=== PATIENT | female | born 1980 | race Caucasian/White ===

== ENCOUNTER 2019-07-29 15:51 | Outpatient (REF) | payer BC, SELFPAY ==
[2019-07-29 21:14] LABS: HCT 38.3 % (36.0-46.0); HGB 12.3 g/dL (12.0-15.5); Mean Corp. HGB Concentration 32.1 g/dL (32.0-36.0); Mean Corpuscular Hemoglobin 27.7 pg (27.0-33.0); Mean Corpuscular Volume 86.3 fL (80-95); Mean Platelet Volume 9.8 fL (8.0-11.0); Platelet Count 376 x1000/uL (130-400); RBC 4.44 m/cumm (4.00-5.20); RBC Distribution Width 13.4 % (11.7-14.6); White Blood Cell Count 5.38 k/cumm (4.4-10.8)
[2019-07-29 21:39] LABS: Vitamin D 25 Total 33.9 ng/ml (30-100)
[2019-07-29 22:10] LABS: ESR 7 mm/hr (0-20)
[2019-08-02 14:30] LABS: ANA Interpretation Positive (Negative); ANA Titer Pattern 1:80 Speckled
== END 2019-07-29 16:11 ==
LOC: NCHCN 15:51
PROVIDERS: PCP Physician Assistant Medical; Visit Provider Nurse Practitioner Family
DX: Z00.00 Encounter for general adult medical examination without abnormal findings (principal); I73.00 Raynaud's syndrome without gangrene; G43.909 Migraine, unspecified, not intractable, without status migrainosus
CPT/HCPCS: 82306; 85027; 85652; 86038

== ENCOUNTER 2020-08-07 09:52 | Outpatient (REF) | payer BC, SELFPAY ==
--- NOTE | 2020-08-07 08:30 | PAPFT_PTH ---
PATIENT: Bella Murray LOC: [facility]#:[id number] AGE/SX: 39/F ROOM: RE08/07/[address]: Sushma Barrera : 1980 BED: DIS: 08/07/2020 SPEC #: [id number] RECD: 08/07/20 18:40 STATUS: KEAGANBrendon REQ #: [id number] MAGALI: 08/07/20 08:[address]: Sushma Barrera DEPT: [facility] Cytology RECD BY: Yvette Chapa ENTERED: 08/07/20 18:40 SP TYPE: PAPFT OTHR DR: Jorge A Golden Tissues: 1 - CX/ENDOCX FOR PAP SMEARS Procedures: PAP THIN PREP/UVM Screening HPV DNA PROBE Comments: [id number]
== END 2020-08-07 10:12 ==
LOC: NCHCN 09:52
PROVIDERS: PCP Physician Assistant Medical; Visit Provider Nurse Practitioner Family
DX: Z12.4 Encounter for screening for malignant neoplasm of cervix (principal); Z11.51 Encounter for screening for human papillomavirus (HPV); Z01.419 Encounter for gynecological examination (general) (routine) without abnormal findings
CPT/HCPCS: 88142; 87624

== ENCOUNTER 2020-08-07 16:38 | Outpatient (REF) | payer BC, SELFPAY ==
[2020-08-07 20:10] LABS: Calculated LDL 193 mg/dL (<100); Cholesterol 273 mg/dL (<200); Glucose 84 mg/dL (74-106); HDL Cholesterol 72 mg/dL (40-60); Triglyceride 44 mg/dL (<150)
== END 2020-08-07 16:58 ==
LOC: NCHCN 16:38
PROVIDERS: PCP Physician Assistant Medical; Visit Provider Nurse Practitioner Family
DX: Z00.00 Encounter for general adult medical examination without abnormal findings (principal); Z13.220 Encounter for screening for lipoid disorders; Z13.1 Encounter for screening for diabetes mellitus
CPT/HCPCS: 80061; 82947

== ENCOUNTER 2021-02-26 11:30 | Outpatient (REF) | payer BC, SELFPAY ==
[2021-02-26 16:02] LABS: Calculated LDL 208 mg/dL (<100); Cholesterol 293 mg/dL (<200); HDL Cholesterol 78 mg/dL (40-60); Triglyceride 39 mg/dL (<150)
== END 2021-02-26 11:31 | disposition home or self-care (01) ==
LOC: NCHCN 11:30
PROVIDERS: PCP Physician Assistant Medical; Visit Provider Nurse Practitioner Family
DX: E78.5 Hyperlipidemia, unspecified (principal)
CPT/HCPCS: 80061

== ENCOUNTER 2021-05-04 09:24 | Outpatient (REF) | payer BC, SELFPAY ==
[2021-05-04 19:59] LABS: ALT 30 U/L (14-59); AST 15 U/L (15-37); Calculated LDL 109 mg/dL (<100); Cholesterol 187 mg/dL (<200); HDL Cholesterol 68 mg/dL (40-60); Triglyceride 50 mg/dL (<150)
== END 2021-05-04 09:25 | disposition home or self-care (01) ==
LOC: NCHCN 09:24
PROVIDERS: PCP Physician Assistant Medical; Referring Provider Nurse Practitioner Family; Visit Provider Nurse Practitioner Family
DX: E78.5 Hyperlipidemia, unspecified (principal)
CPT/HCPCS: 80061; 84450; 84460

== ENCOUNTER 2022-06-05 02:43 | Outpatient (CLI) | payer BC, SELFPAY ==
[2022-06-05 08:56] LABS: Calculated LDL 79 mg/dL (<100); Cholesterol 169 mg/dL (<200); HDL Cholesterol 84 mg/dL (40-60); Triglyceride 32 mg/dL (<150)
[2022-06-05 08:57] LABS: ALT 23 U/L (14-59); AST 21 U/L (15-37); Creatine Kinase 64 U/L (26-192); Glucose 93 mg/dL (74-106)
== END 2022-06-05 02:44 | disposition home or self-care (01) ==
LOC: LBO 02:43
PROVIDERS: Internal Medicine Cardiovascular Disease; PCP Physician Assistant Medical; Visit Provider Nurse Practitioner Family
DX: E78.00 Pure hypercholesterolemia, unspecified (principal); E78.5 Hyperlipidemia, unspecified; Z00.00 Encounter for general adult medical examination without abnormal findings
CPT/HCPCS: 36415; 80061; 82550; 82947; 84450; 84460

== ENCOUNTER 2023-05-19 18:58 | Outpatient (REF) | payer BC, SELFPAY ==
[2023-05-19 16:56] LABS: ALT 26 U/L (14-59); AST 27 U/L (15-37); Calculated LDL 105 mg/dL (<100); Cholesterol 189 mg/dL (<200); Creatine Kinase 207 U/L (26-192); Glucose 70 mg/dL (74-106); HDL Cholesterol 71 mg/dL (40-60); Triglyceride 66 mg/dL (<150)
== END 2023-05-19 18:59 | disposition home or self-care (01) ==
LOC: NCHCN 18:58
PROVIDERS: PCP Physician Assistant Medical; Visit Provider Nurse Practitioner Family
DX: Z00.00 Encounter for general adult medical examination without abnormal findings (principal); E78.5 Hyperlipidemia, unspecified; R73.09 Other abnormal glucose
CPT/HCPCS: 80061; 82550; 82947; 84450; 84460

== ENCOUNTER 2023-06-04 15:58 | Outpatient (CLI) | payer BC, SELFPAY ==
--- NOTE | 2023-06-04 15:00 | DI.RAD_ITS ---
Exam(s) XR TIB/FIB RT EXAM: XR TIB/FIB RT CLINICAL HISTORY: CALF PAIN. TECHNIQUE: 2D digital imaging was performed. COMPARISON: No exams were available for comparison FINDINGS: Two views No evidence of acute fracture. Bone density normal. No osseous lesions. No obvious degenerative ch anges in the partially visualized knee. IMPRESSION: No significant osseous findings in the tibia and fibula. DATA REPOSITORY: RADIATION DOSE DELIVERED:
== END 2023-06-04 15:59 | disposition home or self-care (01) ==
LOC: DIORS 15:58
PROVIDERS: PCP Physician Assistant Medical; Visit Provider Student in an Organized Health Care Education/Training Program
DX: M79.661 Pain in right lower leg (principal)
CPT/HCPCS: 73590

== ENCOUNTER 2024-11-16 18:54 | Outpatient (REF) | payer OTHER, SELFPAY ==
--- NOTE | 2024-11-16 13:50 | PAPFT_PTH ---
PATIENT: Bella Murray LOC: [facility]#:[id number] AGE/SX: 44/F ROOM: RE11/16/[address]: Katiana Jalloh V : 1980 BED: DIS: 11/16/2024 SPEC #: [id number] RECD: 11/17/24 13:13 STATUS: JALYN RESumi #: [id number] MAGALI: 11/16/24 13:[address]: Katiana Jalloh V DEPT: [facility] Cytology RECD BY: Yvette Chapa ENTERED: 11/17/24 13:14 SP TYPE: PAPFT OT DR: Jorge A Golden Tissues: 1 - CX/ENDOCX FOR PAP SMEARS Procedures: PAP THIN PREP/UVM Screening Comments: [id number]
[2024-11-16 20:21] LABS: Hemoglobin A1C 5.3 % (<5.7)
[2024-11-16 20:24] LABS: ALT 37 U/L (14-59); AST 36 U/L (15-37); Albumin 3.8 g/dL (3.4-5.0); Alkaline Phosphatase 52 U/L (46-116); Anion Gap 7.6 mmol/L (3-11); BUN 14 mg/dL (7-18); Bilirubin, Total 0.3 mg/dL (0.2-1.0); CO2 28.4 mmol/L (21.0-32.0); CREATININE 0.7 mg/dL (0.55-1.02); Calculated LDL 100 mg/dL (<100); Chloride 106 mmol/L (98-107); Cholesterol 188 mg/dL (<200); Estimated GFR 108.62 (mL/min/1.73m2); Glucose 104 mg/dL (74-106); HDL Cholesterol 77 mg/dL (>or=50); Potassium 3.8 mmol/L (3.5-5.1); Sodium 142 mmol/L (136-145); Total Protein 7.4 g/dL (6.4-8.2); Triglyceride 56 mg/dL (<150)
[2024-11-16 21:36] LABS: Creatine Kinase 250 U/L (26-192)
== END 2024-11-16 18:55 | disposition home or self-care (01) ==
LOC: NCHCN 18:54
PROVIDERS: PCP Physician Assistant Medical; Visit Provider Family Medicine
DX: Z11.51 Encounter for screening for human papillomavirus (HPV) (principal); E78.5 Hyperlipidemia, unspecified; Z13.1 Encounter for screening for diabetes mellitus; Z01.419 Encounter for gynecological examination (general) (routine) without abnormal findings
CPT/HCPCS: 80053; 80061; 82550; 88142; 83036

== ENCOUNTER 2024-12-08 02:09 | Outpatient (CLI) | payer OTHER, SELFPAY ==
--- NOTE | 2024-12-08 | DI.MAMMO_ITS ---
Exam(s) MAMMO SCREENING EXAM: MAMMO SCREENING CLINICAL HISTORY: Screening, Z12.31 TECHNIQUE: Bilateral full field digital CC and MLO mammographic images were obtained with 3D tomosyn thesis and utilizing computer aided detection (CAD). COMPARISON: This is a baseline examination. There are no priors for comparison. FINDINGS: Masses/Architectural Distortion: There is an question of area spiculation in the medial right breast on the craniocaudad view 7 cm from the nipple. The left breast is unremarkable. Microcalcifications: No suspicious pleomorphic-type are seen. Skin Thickening/Nipple Retraction: None. IMPRESSION: 1. Question of an area spiculation in the medial right breast 7 cm from the nipple. 2. Spot compression views requested for further evaluation. Ultrasound may be indicated at that time . BI-RADS Category 0 - Incomplete: Need additional imaging evaluation Breast Density - Category D - Extremely dense Breast density category C or D implies that the patient has dense breast tissue. Dense breast tissue is very common and is not abnormal but dense breast tissue can make it harder to find cancer on a ma mmogram. Also, dense breast tissue may increase their breast cancer risk. This information about the result of the mammogram report was provided to the patient to raise their awareness. Use this report when you speak with the patient about their risks for breast cancer, which includes their family hist ory. At that time, you may recommend for more screening tests (Ultrasound or MRI) as they might be us eful based on their risk. A negative radiographic report should not delay biopsy if a dominant or clinically suspicious mass is present. Up to ten percent of cancers are not identified on mammography. A negative report may reinforce clinical impression. Adenosis and dense breasts may obscure an underlying neoplasm. False positive reports average 6 to 10%. Patient will receive a letter notifying them of these results.
== END 2024-12-08 02:29 ==
LOC: DI 02:09
PROVIDERS: PCP Physician Assistant Medical; Visit Provider Family Medicine
DX: Z12.31 Encounter for screening mammogram for malignant neoplasm of breast (principal); R92.343 Mammographic extreme density, bilateral breasts
CPT/HCPCS: 77063; 77067

== ENCOUNTER 2024-12-14 00:07 | Outpatient (CLI) | payer OTHER, SELFPAY ==
--- NOTE | 2024-12-14 | DI.US_ITS ---
Exam(s) MG MAMMO SCREEN CALL BACK UNI US BREAST RT LIMITED EXAM: MG MAMMO SCREEN CALL BACK UNI CLINICAL HISTORY: R92.8 ABN mammo, Area spiculation Medial RT breast 7cm from nipple. TECHNIQUE: Craniocaudal spot compression digital Mammography views of the rightbreast with Tomosynt hesis and right breast ultrasound. COMPARISON: MG MG MAMMO SCREENING from 12/08/2024 US US BREAST RT LIMITED from 12/14/2024 FINDINGS: Mammography/Tomosynthesis: Masses: None seen. Architectural Distortion: None seen. Microcalcifictions: No suspicious pleomorphic-type are seen. Skin Thickening/Nipple Retraction: None. Right breast US: Echotexture: Normal appearance of the glandular tissue. Shadowing: No suspicious foci. Cyst: None. Solid lesions: None seen. Ductal dilation: None. IMPRESSION: 1. No evidence of malignancy is noted. 2. Unless there is more urgent need, follow-up screening mammography is recommended, as per [place] [employer] guidelines. 3. The findings were discussed with the patient on the date of the examination. BI-RADS Category 1 - Negative Breast Density - Category D - Extremely dense A mammogram that demonstrates density of C or D indicates the patient's breast tissue is dense. Dense breast tissue is very common and is not abnormal, but dense breast tissue can make it harder to find cancer on a mammogram. Also, dense breast tissue may increase their breast cancer risk. This informa tion about the result of the mammogram report was provided to the patient to raise their awareness. U se this report when you speak with the patient about their risks for breast cancer, which includes th eir family history. At that time, you may recommend for more screening tests (Ultrasound or MRI) as t hey might be useful based on their risk. A negative radiographic report should not delay biopsy if a dominant or clinically suspicious mass is present. Up to ten percent of cancers are not identified on mammography. A negative report may reinforce clinical impression. Adenosis and dense breasts may obscure an underlying neoplasm. False positive reports average 6 to 10%. Patient will receive a letter notifying them of these results.
== END 2024-12-14 00:27 ==
LOC: DI 00:07
PROVIDERS: PCP Physician Assistant Medical; Visit Provider Family Medicine
DX: Z12.31 Encounter for screening mammogram for malignant neoplasm of breast (principal); R92.8 Other abnormal and inconclusive findings on diagnostic imaging of breast; R92.343 Mammographic extreme density, bilateral breasts
CPT/HCPCS: 76642; 77063; 77067

== ENCOUNTER 2025-07-28 11:21 | Day surgery (SDC) | payer OTHER, SELFPAY ==
[2025-07-28 11:47] VITALS: BP 99/70; PULSE 74; RESP 15; TEMP 36.6; O2SAT 100
[2025-07-28] MEDS: Lactated Ringers 1,000 ML 80 ML IV (11:58)
--- NOTE | 2025-07-28 12:53 | W.ANESPRE ---
General Info Date of Service Date Performed: 07/28/25 Height: 5 ft 6 in Weight: 68.1 kg Body Mass Index (BMI): 24.2 Surgical Procedure: Operation Date: 07/28/25 13:05 Proposed Procedure Side Surgeon p Colonoscopy Jeanette Gilman MD Meds Allergies and Home Medications Allergies Allergy/AdvReac Type Severity Reaction Status Date / Time No Known Allergies Allergy Verified 07/28/25 11:37 Home Medication ?Medication ?Instructions ?Recorded cholecalciferol (vitamin D3) 25 25 mcg PO DAILY 03/05/21 mcg (1,000 unit) capsule atorvastatin 40 mg tablet 40 mg PO .nightly #90 tabs 03/17/25 bisacodyl 5 mg tablet,delayed 5 mg PO ONCE Colonoscopy Bowel 07/07/25 release Prep #4 tabs magnesium glycinate mg PO 07/07/25 polyethylene glycol 3350 17 238 g PO ONCE #238 grams 07/07/25 gram/dose oral powder Current Visit Medications: Current Medications Generic Name Dose Route Start Last Admin Trade Name Freq PRN Reason Stop Dose Admin Ringer's Solution 1,000 mls @ 80 mls/hr 07/28/25 06:00 07/28/25 11:58 IV 07/28/25 23:59 80 mls/hr INFUSION YOEL Administration Sodium Biphosphate/Sodium Phosphate 133 ml 07/28/25 06:00 Na Phosphate Enema-Adult 133 Ml Btl IA 07/28/25 23:59 DIRECTED PRN Sodium Chloride 0 ml 07/28/25 06:00 Normal Saline Flush 10 Ml Syr IV 07/28/25 23:59 PRN PRN Sodium Chloride 0 ml 07/28/25 06:00 Normal Saline 10 Ml Vial IJ 07/28/25 23:59 DIRECTED PRN Sterile Water 0 ml 07/28/25 06:00 Water,Injection,Sterile 10 Ml Vial IJ 07/28/25 23:59 DIRECTED PRN PFSH Active Problems Active Problems: Problem Status Onset Code De Quervain's tenosynovitis, left Acute Strain of right gastrocnemius muscle Acute 05/25/23 S86.111A Adjustment disorder with mixed anxiety and depressed mood Acute F43.23 Tobacco abuse disorder Acute Z72.0 Raynaud disease Acute I73.00 Hypercholesterolemia Acute E78.00 Medical History Medical History Breast lump (01/28/14) Tobacco Smoking/Tobacco Use Status: Former Tobacco Use Alcohol Alcohol Intake: current Alcohol intake frequency: a few times a month Substance Use Substance use type: does not use Vital Signs and Lab Results Vital Signs Most Recent Vital Signs in EMR: Most Recent Vital Signs Temp Pulse Resp BP Pulse Ox 36.6 C 74 15 99/70 L 100 07/28/25 11:47 07/28/25 11:47 07/28/25 11:47 07/28/25 11:47 07/28/25 11:47 Point of Care Results Point of Care Results: POC- Test(urine) Negative 07/28/25 11:51 Imaging and Studies Imaging and Studies Study information below may be from another EMR and interpreted by another provider. Please see original notes in EMR for more complete details. EKG Summary: EKG PATIENT NAME: Bella Murray UNIT #: [id number] ORDERING PROVIDER: José Grimes M.D. PRIMARY CARE PROVIDER: SHALOM IZQUIERDO DATE/TIME OF SERVICE: 03/06/21 1031 : 1980 PERFORMING LOCATION: .CARD APPROVED REPORT Exam: Resting ECG Reason for Exam: baseline, evaluation Patient Location: O HR:68 bpm ECG Measurements Heart Rate 68 AXIS IA 142 P 80 QRSd 83 QRS 79 QT 374 T50 QTc 398 Conclusion Sinus rhythm...normal P axis, V-rate 50- 99 <Electronically signed by JOSÉ GRIMES MD in OV> E-Sign Date: 03/06/21 E-Sign Time: 1251 Anesthesia Assessment and Plan Anesthesia History Personal History: No History of General Anesthesia Family History: No Family History of Anesthesia Complications Exercise Tolerance Exercise Tolerance: Metabolic Equivalents>4 Pertinent Negatives Pertinent Negatives: No Symptoms of GERD Cardiac & Pulmonary Exam Cardiac Exam: Normal S1/S2 Heart Sounds Pulmonary Exam: Clear Bilateral Breath Sounds Implantable Cardiac Device Does patient have a Pacemaker or an ICD?: No Airway Exam Known Difficult Airway: No Mallampati Class: 2 Mouth Opening: Normal (> 3cm) Thyromental Distance: Greater than 3 cm Neck Range of Motion: Full ROM Neck Circumference: Normal Teeth Condition: Normal Dentition ASA Classification ASA Score: ASA 2 Emergency Case?: No NPO Status NPO Status: NPO Clears >2 hours, Solids >8 hours Status Status: Negative HCG Anesthesia Plan Resuscitation Status: Full Code Anesthesia Technique: General Anesthesia Airway Planned: Natural Airway Monitors Used: Standard Monitors
[2025-07-28 12:54] VITALS: BMI 24.2
--- NOTE | 2025-07-28 12:57 | W.PM.DSUDISC ---
Date of service: 07/28/25 Discharge Plan Disposition Patient Disposition: Home Condition: Stable Discharge Details Attending Provider: Jeanette Gilman Primary Care Provider: Jorge A Golden Home Meds and New Rx's Prescriptions: Continued magnesium glycinate 100 mg magnesium capsule PO cholecalciferol (vitamin D3) 25 mcg (1,000 unit) capsule 25 mcg PO DAILY atorvastatin 40 mg tablet 40 mg PO .nightly Qty: 90 3RF Discontinued bisacodyl 5 mg tablet,delayed release (DR/EC) 5 mg PO ONCE Qty: 4 0RF Rx Instructions: Per Colonoscopy bowel prep instructions polyethylene glycol 3350 17 gram/dose powder 238 g PO ONCE Qty: 238 0RF Rx Instructions: For Colonoscopy bowel prep, as directed by office Discharge Instructions Additional Instructions: Normal screening colonoscopy, zero polyps, next colonoscopy due in 10 years. Stand Alone Forms: Anesthesia Discharge Inst., Colonoscopy Post Instructions, Susana Nguyen (DSU), Portal Information Activity:: Activity as Tolerated Diet:: As Tolerated Discharge Orders Discharge Orders: Discharge Order (Routine); Ordered 07/28/25 Ordered By: Jeanette Gilman DS: Diagnosis Discharge Diagnosis (1) Encounter for colorectal cancer screening: Status: Acute
--- NOTE | 2025-07-28 13:23 | W.COLOREPORT ---
Date of service: 07/28/25 Time of Service: 13:23 Colonoscopy Report Date of procedure: 07/28/25 Pre-op diagnosis general: Screening for colorectal cancer Post-op diagnosis procedure note: same Procedure: Colonoscopy Surgeon: Jeanette Gilman Anesthesia Type: General:No Airway Estimated blood loss (mL): 0 Pathology: none sent Complications: None Indications: screening for colorectal cancer Prep: Miralax/Dulcolax Procedure Description: Informed consent was obtained and the patient was taken to the procedure area. The patient was placed in left lateral decubitus position on the procedure table. Timeout was performed. Anesthesia was induced. A lubricated colonoscope was inserted through the anus and passed to the cecum. The cecum was identified by the ileocecal valve and the appendiceal orifice. The scope was then slowly withdrawn and the colonic and rectal mucosa examined. There are no colon or rectal mass lesions, polyps, AVMs. There is no inflammatory change. No diverticulosis was seen. The scope was retroflexed in the anorectal junction examined. Uncomplicated internal hemorrhoids present. Assessment and plan: Colorectal cancer screening. Normal colonoscopy. Next screening colonoscopy will be due in 10 years.
[2025-07-28 13:25] VITALS: BP 112/70; PULSE 84; RESP 18; TEMP 36.5; O2SAT 98
--- NOTE | 2025-07-28 13:39 | W.ANESPOSTOP ---
Postoperative Evaluation Date, Time and Location Date Performed: 07/28/25 Time Performed: 13:39 Patient Location: Day Surgery Unit Vital Signs Most Recent Imported Vital Signs: Most Recent Vital Signs Temp Pulse Resp BP Pulse Ox 36.5 C 84 18 112/70 98 07/28/25 13:25 07/28/25 13:25 07/28/25 13:25 07/28/25 13:25 07/28/25 13:25 Pain Score Most Recent Pain Score: Most Recent Pain Score Pain Level 0 07/28/25 13:25 Assessment Mental Status: Awake (Alert & Oriented to Patient Baseline) Airway and Respiratory Function: Patent airway with normal (patient baseline) respiratory exam Cardiovascular Function: Hemodynamically Stable Hydration Status: Adequately Hydrated Nausea & Vomiting: No Nausea or Vomiting Pain: Pt. Denies Any Pain Peripheral Nerve Block: Patient did not receive a nerve block
[2025-07-28 13:54] VITALS: BP 104/50; PULSE 68; RESP 14; TEMP 36.6; O2SAT 99
== END 2025-07-28 14:04 | disposition home or self-care (01) ==
LOC: SUR 11:22
PROVIDERS: PCP Physician Assistant Medical; Visit Provider Surgery
PROC: 0DJD8ZZ Inspection of Lower Intestinal Tract, Via Natural or Artificial Opening Endoscopic (ICD-10-PCS; CPT 45378; principal; 2025-07-28 13:00)
DX: Z12.11 Encounter for screening for malignant neoplasm of colon (principal); Z12.12 Encounter for screening for malignant neoplasm of rectum
CPT/HCPCS: 45378; 81025; J2704